=== PATIENT | female | born 1990 | race Caucasian/White ===

== ENCOUNTER 2018-01-24 00:41 | Observation (INO) | payer MEDICAID ==
[~2018-01-24] VITALS: Ht 165.1 cm; Wt 64.4 kg
[2018-01-24 02:16] VITALS: BP 115/79
[2018-01-24] MEDS ORDERED: PNV11TAB PO (02:25)
[2018-01-24] MEDS ORDERED: RINGERS SOLUTION,LACTATED 1,000 ML IV ONE (02:39)
== END 2018-01-24 01:45 | disposition home or self-care (01) ==
LOC: 4S 00:41
PROVIDERS: ADMIT Obstetrics & Gynecology; ATTEND Obstetrics & Gynecology
DX: O26.893 Other specified pregnancy related conditions, third trimester (principal); N89.8 Other specified noninflammatory disorders of vagina; R06.00 Dyspnea, unspecified; Z3A.38 38 weeks gestation of pregnancy
CPT/HCPCS: 59025; G0378; J7120

== ENCOUNTER 2018-02-09 09:15 | Inpatient (IN) | payer MEDICAID ==
[~2018-02-09] VITALS: Ht 165.1 cm; Wt 64.5 kg
[~2018-02-09 09:15] MED LIST: PNV11TAB PO
[2018-02-09 09:20] VITALS: BP 124/79
[2018-02-09] MEDS ORDERED: ROPIVACAINE HCL/PF 0.2% 100 ML ED ONE (09:56)
[2018-02-09] MEDS: RINGERS SOLUTION,LACTATED 1,000 ML IV SCH ×2 (10:00→14:30)
[2018-02-09] MEDS ORDERED: OXYTOCIN 30 UNITS/LACT RINGERS 500 ML IV ONE (10:05)
[2018-02-09] MEDS ORDERED: RINGERS SOLUTION,LACTATED 1,000 ML IV PRN (10:05)
[2018-02-09] MEDS ORDERED: LIDOCAINE HCL/PF 1% 30 ML VIAL INJ PRN (10:15)
[2018-02-09] MEDS ORDERED: FentaNYL CITRATE-PF 100 MCG/2 ML VIAL IVP PRN (10:15)
[2018-02-09] MEDS ORDERED: METHYLERGONOVINE MALEATE 0.2 MG/ML VIAL IM PRN (10:15)
[2018-02-09] MEDS ORDERED: CITRIC ACID/SODIUM CITRATE 30 ML SOLUTION UDCUP PO PRN (10:15)
[2018-02-09] MEDS ORDERED: METOCLOPRAMIDE HCL 5 MG/ML 2 ML VIAL IVP PRN (10:15)
[2018-02-09] MEDS ORDERED: OXYGEN THERAPY IH SCH (10:15)
[2018-02-09 11:17] LABS: BASOPHILS % (AUTO) 0.7 % (0.0-2.0); EOSINOPHILS % (AUTO) 1.2 % (1.0-6.0); HEMATOCRIT 33.3 % (36-46); HEMOGLOBIN 11.2 g/dL (12.0-16.0); LYMPHOCYTES # (AUTO) 2.9 K/uL (1.0-4.8); LYMPHOCYTES % (AUTO) 28.9 % (22.0-44.0); MEAN CORPUSCULAR HEMOGLOBIN 29.1 pg (26.0-34.0); MEAN CORPUSCULAR HGB CONC 33.6 G/dL (31.0-37.0); MEAN CORPUSCULAR VOLUME 87 fL (80-100); MONOCYTES # (AUTO) 0.6 K/uL (0.1-1.0); MONOCYTES % (AUTO) 6.2 % (2.0-9.0); NEUTROPHILS # (AUTO) 6.3 K/uL (1.8-7.7); PLATELET COUNT (AUTO)-OB 277 K/uL (150-450); RED BLOOD CELL COUNT(AUTO) 3.84 MIL/uL (4.00-5.20); RED CELL DISTRIBUTION WIDTH 13.4 % (11.5-14.5)
[2018-02-09] MEDS ORDERED: FentaNYL/BUPIV 0.125%/NS/PF 200 ML ED PRN (13:21)
[2018-02-09] MEDS ORDERED: NALBUPHINE HCL 10 MG/ML VIAL IVP PRN (13:30)
[2018-02-09] MEDS ORDERED: ONDANSETRON HCL 4 MG/2 ML VIAL IVP PRN (13:30)
[2018-02-09] MEDS ORDERED: DiphenhydrAMINE HCL 50 MG/ML VIAL IVP PRN (13:30)
[2018-02-09] MEDS ORDERED: RINGERS SOLUTION,LACTATED 1,000 ML IV ONE (18:04)
[2018-02-09] MEDS ORDERED: GLYCERIN/WITCH HAZEL LEAF 40 PADS JAR TP PRN (18:15)
[2018-02-09] MEDS ORDERED: LANOLIN 7 GM OINTMENT TP PRN (18:15)
[2018-02-09] MEDS ORDERED: BENZOCAINE 20%/MENTHOL 56 GM SPRAY CANISTER TP PRN (18:15)
[2018-02-09] MEDS ORDERED: OxyCODONE HCL/ACETAMINOPHEN 5-325 MG TABLET PO PRN ×2 (18:15)
[2018-02-09] MEDS ORDERED: MEASLES/MUMPS/RUBELLA VACCINE, LIVE 0.5 ML/VIAL SQ ONE (18:15)
[2018-02-09] MEDS: IBUPROFEN 600 MG TABLET PO PRN ×2 (18:16→21:49)
[2018-02-09] MEDS ORDERED: MAGNESIUM HYDROXIDE SUSPENSION 30 ML UDCUP PO SCH (21:00)
[2018-02-10] MEDS: IBUPROFEN 600 MG TABLET PO PRN (08:22)
[2018-02-10] MEDS ORDERED: DSS100 PO (11:38)
[2018-02-10] MEDS ORDERED: IBUP-2071 PO (11:38)
[2018-02-10] MEDS ORDERED: FERR-89 PO (11:38)
== END 2018-02-10 17:45 | disposition home or self-care (01) | DRG 560 ==
LOC: OBSVTOIN 09:15 → 4S 09:15
PROVIDERS: ADMIT Obstetrics & Gynecology; ATTEND Obstetrics & Gynecology
PROC: 10E0XZZ Delivery of Products of Conception, External Approach (ICD-10-PCS; principal; 2018-02-09)
PROC: 0W8NXZZ Division of Female Perineum, External Approach (ICD-10-PCS; 2018-02-09)
PROC: 0KQM0ZZ Repair Perineum Muscle, Open Approach (ICD-10-PCS; 2018-02-09)
PROC: 3E0R3BZ Introduction of Anesthetic Agent into Spinal Canal, Percutaneous Approach (ICD-10-PCS; 2018-02-09)
PROC: 00HU33Z Insertion of Infusion Device into Spinal Canal, Percutaneous Approach (ICD-10-PCS; 2018-02-09)
DX: O70.1 Second degree perineal laceration during delivery (principal); Z37.0 Single live birth; Z3A.40 40 weeks gestation of pregnancy
CPT/HCPCS: 86850; 86900; 86901; J2590; J2795; J3490; J7120